=== PATIENT | male | born 2000 | race Caucasian/White ===

== ENCOUNTER 2020-04-05 18:50 | Emergency (ER) | payer SELFPAY | END 2020-04-05 19:28 | disposition home or self-care (01) | LOC: BURERS 18:50 | DX: R06.00 Dyspnea, unspecified (principal); J45.909 Unspecified asthma, uncomplicated; F17.220 Nicotine dependence, chewing tobacco, uncomplicated | CPT/HCPCS: 99281 ==

== ENCOUNTER 2021-07-15 22:31 | Emergency (ER) | payer SELFPAY ==
[2021-07-15] MEDS ORDERED: HYDROcodone/Acetaminophen 5/325 mg Tablet ONE (23:27)
== END 2021-07-15 23:40 | disposition home or self-care (01) ==
LOC: BURERS 22:31
DX: S76.911A Strain of unspecified muscles, fascia and tendons at thigh level, right thigh, initial encounter (principal); F17.200 Nicotine dependence, unspecified, uncomplicated; W18.30XA Fall on same level, unspecified, initial encounter
CPT/HCPCS: 72170

== ENCOUNTER 2022-10-16 09:19 | Emergency (ER) | payer SELFPAY ==
[2022-10-16] MEDS ORDERED: Tetracaine 0.5% PF 4 ML BOT ONE (09:33)
[2022-10-16] MEDS ORDERED: Fluorescein Opthalmic Strip ONE (09:33)
== END 2022-10-16 10:09 | disposition home or self-care (01) ==
LOC: BURERS 09:19
DX: S05.02XA Injury of conjunctiva and corneal abrasion without foreign body, left eye, initial encounter (principal); F17.210 Nicotine dependence, cigarettes, uncomplicated; X58.XXXA Exposure to other specified factors, initial encounter
CPT/HCPCS: 99283